=== PATIENT | female | born 1995 | race Two or more races ===

== ENCOUNTER 2016-07-21 00:24 | Emergency (ER) | payer SELFPAY ==
[~2016-07-21] VITALS: Ht 162.6 cm; Wt 59.0 kg
[2016-07-21] VITALS (10 sets, daily range): BP systolic 101–139; BP diastolic 50–85
[2016-07-21 01:16] LABS: BASOPHILS % (AUTO) 0.8 % (0.0-2.0); EOSINOPHILS % (AUTO) 1.9 % (0.0-3.0); LYMPHOCYTES % (AUTO) 21.1 % (20.0-45.0); MEAN CORPUSCULAR HEMOGLOBIN 28.3 PG (27.0-31.0); MEAN CORPUSCULAR HGB CONC 31.8 G/DL (32.0-36.0); MEAN CORPUSCULAR VOLUME 89 FL (80-99); MEAN PLATELET VOLUME 7.1 FL (6.5-10.1); MONOCYTES % (AUTO) 7.7 % (1.0-10.0); NEUTROPHILS % (AUTO) 68.5 % (45.0-75.0); PLATELET COUNT 366 K/UL (150-450); RED CELL DISTRIBUTION WIDTH 12.5 % (11.6-14.8); WHITE BLOOD COUNT 11.1 K/UL (4.8-10.8)
[2016-07-21 01:33] LABS: ACETAMINOPHEN < 10 ug/mL (10-30); ALANINE AMINOTRANSFERASE 68 U/L (3-33); ALBUMIN/GLOBULIN RATIO 1.4 (1.0-2.7); ALCOHOL 98 mg/dL; ANION GAP 20 (5-15); ASPARTATE AMINO TRANSFERASE 40 U/L (5-40); CALCIUM 8.9 mg/dL (8.6-10.2); CARBON DIOXIDE 22 mEQ/L (20-30); CHLORIDE 103 mEQ/L (98-107); CREATININE 0.9 mg/dL (0.5-0.9); GLOMERULAR FILTRATION RATE > 60 mL/min (>60); HEMOLYSIS 6; POTASSIUM 3.9 mEQ/L (3.4-4.9); SODIUM 145 mEQ/L (135-145); TOTAL PROTEIN 6.9 g/dL (6.6-8.7)
[2016-07-21] MEDS ORDERED: Thiamine HCl 100 MG in D5W 55 ML IVPB ONE (02:00)
[2016-07-21] MEDS ORDERED: Thiamine HCl 100mg/ml Inj ONE (02:21)
--- NOTE | 2016-07-21 02:44 | Emergency Room Report ---
History of Present Illness General Chief Complaint: Altered Level of Consciousness Source: Patient, EMS (Best Kelly) Present Illness HPI Patient is a 21-year-old female presented after increased altered level consciousness. Patient was found outside in the street. Patient had had been behaving bizarrely. History is markedly limited by patient's mental status. (Best Kelly) Allergies: Coded Allergies: UNABLE TO ASSESS (Unverified , 07/21/16) Patient History Last Menstrual Period: unk Reviewed Nursing Documentation: PMH: Agreed, PSxH: Agreed (Bset Kelly) Review of Systems All Other Systems: negative except mentioned in HPI (Best Kelly) Physical Exam Vital Signs Date Time Temp Pulse Resp B/P Pulse Ox O2 Delivery O2 Flow Rate FiO2 07/21/16 00:27 98.4 120 16 139/69 99 Room Air Sp02 EP Interpretation: reviewed, normal General Appearance: normal inspection, well appearing, no apparent distress, alert, GCS 15 Head: atraumatic ENT: normal ENT inspection, hearing grossly normal, normal voice Neck: normal inspection, full range of motion, supple, no bony tend Respiratory: normal inspection, lungs clear, normal breath sounds, no respiratory distress, no retraction, no wheezing Cardiovascular #1: regular rate, rhythm, no edema Gastrointestinal: normal inspection, normal bowel sounds, non tender, soft, no guarding, no hernia Genitourinary: no CVA tenderness Musculoskeletal: normal inspection, back normal, normal range of motion Neurologic: normal inspection, alert, oriented x3, responsive, motor strength/ tone normal, speech normal Psychiatric: mood/affect normal, other - delusions, bizzare behavior Skin: normal color, no rash, other - acneiform lesions (Best Kelly) Medical Decision Making Diagnostic Impression: Primary Impression: Altered level of consciousness Additional Impressions: Alcohol intoxication Methamphetamine abuse Psychosis ER Course Patient presented for altered mental status. Differential diagnosis included but was not limited to ischemic stroke, subarachnoid hemorrhage, hypoglycemia, spinal cord injury, neurodegenerative disorder, urinary tract infection, hypoxemia.Because of complexity of patient's case laboratory testing and imaging studies were ordered.Patient was noted to have some bizarre behavior. The patient was noted to be drug screen positive for amphetamine as well as for alcohol. Patient was noted to have evidence of underlying psychosis. The patient might likely need psychiatric evaluation and placement. Labs Test 07/21/16 01:03 White Blood Count 11.1 K/UL (4.8-10.8) Red Blood Count 4.60 M/UL (4.20-5.40) Hemoglobin 13.0 G/DL (12.0-16.0) Hematocrit 40.8 % (37.0-47.0) Mean Corpuscular Volume 89 FL (80-99) Mean Corpuscular Hemoglobin 28.3 PG (27.0-31.0) Mean Corpuscular Hemoglobin Concent 31.8 G/DL (32.0-36.0) Red Cell Distribution Width 12.5 % (11.6-14.8) Platelet Count 366 K/UL (150-450) Mean Platelet Volume 7.1 FL (6.5-10.1) Neutrophils (%) (Auto) 68.5 % (45.0-75.0) Lymphocytes (%) (Auto) 21.1 % (20.0-45.0) Monocytes (%) (Auto) 7.7 % (1.0-10.0) Eosinophils (%) (Auto) 1.9 % (0.0-3.0) Basophils (%) (Auto) 0.8 % (0.0-2.0) Urine HCG, Qualitative Negative Sodium Level 145 mEQ/L (135-145) Potassium Level 3.9 mEQ/L (3.4-4.9) Chloride Level 103 mEQ/L (98-107) Carbon Dioxide Level 22 mEQ/L (20-30) Anion Gap 20 (5-15) Blood Urea Nitrogen 19 mg/dL (7-23) Creatinine 0.9 mg/dL (0.5-0.9) Estimat Glomerular Filtration Rate > 60 mL/min (>60) Glucose Level 95 mg/dL (74-106) Calcium Level 8.9 mg/dL (8.6-10.2) Total Bilirubin 0.4 mg/dL (0.0-1.2) Aspartate Amino Transf (AST/SGOT) 40 U/L (5-40) Alanine Aminotransferase (ALT/SGPT) 68 U/L (3-33) Alkaline Phosphatase 94 U/L (35-104) Total Protein 6.9 g/dL (6.6-8.7) Albumin 4.1 g/dL (3.5-5.2) Globulin 2.8 g/dL Albumin/Globulin Ratio 1.4 (1.0-2.7) Salicylates Level < 1 mg/dL (10-30) Urine Opiates Screen Negative (NEGATIVE) Acetaminophen Level < 10 ug/mL (10-30) Urine Barbiturates Screen Negative (NEGATIVE) Phencyclidine (PCP) Screen Negative (NEGATIVE) Urine Amphetamines Screen Positive (NEGATIVE) Urine Benzodiazepines Screen Negative (NEGATIVE) Urine Cocaine Screen Negative (NEGATIVE) Urine Marijuana (THC) Screen Positive (NEGATIVE) Serum Alcohol 98 mg/dL (Best Kelly) ER Course Continuation note At this time patient was seen by psychiatrist Feels the patient does have psychosis and previous psychiatric history Medication was recommended and patient will at this time continue with official psychiatric evaluation team ENTRY: 07/22 11:15 After a prolonged observation in the emergency room patient accepted by psychiatric facility and sent for transfer for continued inpatient care Labs Test 07/21/16 01:03 White Blood Count 11.1 K/UL (4.8-10.8) Red Blood Count 4.60 M/UL (4.20-5.40) Hemoglobin 13.0 G/DL (12.0-16.0) Hematocrit 40.8 % (37.0-47.0) Mean Corpuscular Volume 89 FL (80-99) Mean Corpuscular Hemoglobin 28.3 PG (27.0-31.0) Mean Corpuscular Hemoglobin Concent 31.8 G/DL (32.0-36.0) Red Cell Distribution Width 12.5 % (11.6-14.8) Platelet Count 366 K/UL (150-450) Mean Platelet Volume 7.1 FL (6.5-10.1) Neutrophils (%) (Auto) 68.5 % (45.0-75.0) Lymphocytes (%) (Auto) 21.1 % (20.0-45.0) Monocytes (%) (Auto) 7.7 % (1.0-10.0) Eosinophils (%) (Auto) 1.9 % (0.0-3.0) Basophils (%) (Auto) 0.8 % (0.0-2.0) Urine HCG, Qualitative Negative Sodium Level 145 mEQ/L (135-145) Potassium Level 3.9 mEQ/L (3.4-4.9) Chloride Level 103 mEQ/L (98-107) Carbon Dioxide Level 22 mEQ/L (20-30) Anion Gap 20 (5-15) Blood Urea Nitrogen 19 mg/dL (7-23) Creatinine 0.9 mg/dL (0.5-0.9) Estimat Glomerular Filtration Rate > 60 mL/min (>60) Glucose Level 95 mg/dL (74-106) Calcium Level 8.9 mg/dL (8.6-10.2) Total Bilirubin 0.4 mg/dL (0.0-1.2) Aspartate Amino Transf (AST/SGOT) 40 U/L (5-40) Alanine Aminotransferase (ALT/SGPT) 68 U/L (3-33) Alkaline Phosphatase 94 U/L (35-104) Total Protein 6.9 g/dL (6.6-8.7) Albumin 4.1 g/dL (3.5-5.2) Globulin 2.8 g/dL Albumin/Globulin Ratio 1.4 (1.0-2.7) Salicylates Level < 1 mg/dL (10-30) Urine Opiates Screen Negative (NEGATIVE) Acetaminophen Level < 10 ug/mL (10-30) Urine Barbiturates Screen Negative (NEGATIVE) Phencyclidine (PCP) Screen Negative (NEGATIVE) Urine Amphetamines Screen Positive (NEGATIVE) Urine Benzodiazepines Screen Negative (NEGATIVE) Urine Cocaine Screen Negative (NEGATIVE) Urine Marijuana (THC) Screen Positive (NEGATIVE) Serum Alcohol 98 mg/dL (OLGA HOWE.Kameron) Last Vital Signs Date Time Temp Pulse Resp B/P Pulse Ox O2 Delivery O2 Flow Rate FiO2 07/21/16 00:30 98.4 120 16 139/69 99 Room Air Status: improved (Best Kelly) Status: improved (OLGA HOWE D.O.) Disposition: XFER TO PSYCH HOSP/UNIT Condition: Improved Referrals: NOT CHOSEN MANASA/,REFERRING (PCP) Best Kelly Jul 21, 2016 02:44 OLGA HOWE D.O. Jul 21, 2016 12:07
--- NOTE | 2016-07-21 14:50 | Diagnostic Imaging Report ---
Indication: Altered mental status Technique: Continuous helical CT scanning of the head was performed without intravenous contrast material. Axial and coronal 5 mm sections were generated. Radiation dose was minimized using automated exposure control Dose: Total Dose Length Product - DLP [address] Dose Index - CTDIvol(s) 70.38 mGy. Comparison: None Findings: The ventricular system is normal in size and configuration. There is no shift of midline structures. No abnormal extra-axial fluid collections are noted. There is no evidence of intracerebral bleeding. No other abnormal high or low density areas are noted within the brain. Intact calvarium. Visualized orbits and sinuses are unremarkable Impression: Normal CT scan of the head without contrast material. The CT scanner at [facility] is accredited by the [employer] and the scans are performed using protocols designed to limit radiation exposure to as low as reasonably achievable to attain images of sufficient resolution adequate for diagnostic evaluation.
[2016-07-22] VITALS (8 sets, daily range): BP systolic 96–106; BP diastolic 60–69
--- NOTE | 2016-07-22 03:58 | Consultation ---
DATE OF CONSULTATION: 07/21/2016 HISTORY OF PRESENT ILLNESS: This is a 21-year-old female with a history of crystal meth use who was brought in to the hospital due to altered level of consciousness. The patient was found in the street behaving . During the evaluation, the patient presents with disorganized speech and behavior. The patient's toxicology was positive for crystal meth and marijuana. She was a poor historian. She was unable to provide any history . She also has impairment of concentration, memory, and attention. Therefore, she is not able to be engaged during the evaluation and answer the questions appropriately. PAST PSYCHIATRIC HISTORY: She was unable to provide taking any history, however, she she was diagnosed with schizophrenia when she started which was about half ago. PAST MEDICAL HISTORY: Unknown. She denies any medical history. ALLERGIES: No known drug allergies. SUBSTANCE ABUSE HISTORY: Significant for crystal meth use ____ she also was intoxicated with alcohol. MENTAL STATUS EXAMINATION: The patient was asleep and arousable. She was pleasant unable to cooperate due to mental status. Mood was neutral. Affect was full and congruent with mood. extremities. Thought process is disorganized. Thought content, positive for delusions. No suicidal or homicidal ideation. Cognition was impaired. Insight and judgment non-existent. ASSESSMENT: AXIS I Crystal methamphetamine abuse. AXIS II Deferred. AXIS III None. AXIS IV Low to moderate. AXIS V Global assessment of functioning is 10. PLAN: The patient will be given olanzapine one time and continue to reassess the patient. If the patient's condition did not improve, I would recommend admitting the patient to the psychiatric unit. Mera Duckworth M.D. DR: Kim JOB#: [id number] CC:
[2016-07-23 01:12] VITALS: BP 101/65
[2016-07-23 01:30] VITALS: BP 101/65
== END 2016-07-22 11:59 ==
LOC: EDBD 00:24 → EMR 01:06
DX: R41.82 Altered mental status, unspecified (principal); F10.129 Alcohol abuse with intoxication, unspecified; F15.10 Other stimulant abuse, uncomplicated; F29 Unspecified psychosis not due to a substance or known physiological condition
CPT/HCPCS: 36415; 70450; 80053; 80300; 81025; 85025; 99285; G0480; 80329